=== PATIENT | female | born 1995 | race Caucasian/White ===

== ENCOUNTER 2017-10-31 21:46 | Emergency (ER) | payer OTHER ==
[~2017-10-31] VITALS: Ht 162.6 cm; Wt 56.7 kg
[2017-10-31 21:50] VITALS: TEMP 36.5; Ht 162.6 cm; Wt 56.7 kg
[2017-10-31] MEDS ORDERED: AMOXICIL/CLAVU 875MG HOME PACK PO ONE (22:15)
[2017-10-31] MEDS ORDERED: OXYCODONE IR HOME PACK PO ONE (22:15)
[2017-10-31] MEDS ORDERED: AMOX875T PO (22:16)
[2017-10-31] MEDS ORDERED: IBUP-1451 PO (22:16)
--- NOTE | 2017-10-31 22:18 | EMERGENCY ROOM VISIT NOTE ---
ED Visit Note First contact with patient: 22:00 CHIEF COMPLAINT: abscess, drainage from wisdom tooth socket HISTORY OF PRESENT ILLNESS: This 22-year-old female patient presented to the emergency department, ambulatory, with a progressive toothache for past week. The patient states she had her wisdom teeth out by a surgeon in [place] last Saturday, and has been having pain in the right lower socket since the surgery. She states the pain has been manageable with her prescription strength ibuprofen , however over the past day, the pain has been significantly worsening. She states this morning, she awoke with a right-sided headache, and burning sensation around the socket. She states she looked in the mirror and noticed swelling and pus from the right lower socket. She is currently taking amoxicillin 500 mg every 8 hours for approximately 10 days. She states she is also taking 800 mg ibuprofen for the pain. She was not given narcotic pain medication. The patient did contact her surgeon earlier this week, and was advised to do salt water rinses. She did not have the burning and headache at that time. She was told to wait until the sutures were out on Saturday for further evaluation. The patient states when the pain worsened today, she felt that she was unable to wait any longer and was concerned for an infection. The pain is now steady and severe and radiates to the face. They rate their pain a 7/10 and the ibuprofen they have been taking has not relieved the pain. The patient denies fever, but does feel that the right side of her face is swollen. REVIEW OF SYSTEMS: A 6 system review of systems was completed with positives and pertinent negatives listed in the HPI. ALLERGIES: None MEDICATIONS: Ibuprofen, amoxicillin PMH: None SOCIAL HISTORY: The patient is a [employer] student. She lives locally with her roommates. She denies drug, alcohol, tobacco use. PHYSICAL EXAM: Vitals are noted on the nurse's note and reviewed by myself. Vital signs stable. Temperature 36.5C orally. GENERAL: This is a 22-year-old female, in no acute distress, nondiaphoretic, well-developed well-nourished. Mouth: The right lower third molar socket does appear to have some mild purulent drainage associated with erythema and edema. The gum is very tender and swollen. There are no obvious signs of an abscess on examination. The drainage does appear to become from the center of the socket where the sutures are in place. The remainder of the pharynx and tonsils are without erythema, edema, or exudate. The airway is patent. There is mild right side facial swelling, but no cervical or submandibular lymphadenopathy. The patient appears uncomfortable and in pain. The patient has overall very good dental hygiene. EARS: External auditory canals clear, tympanic membranes pearly navarro without erythema or effusion bilaterally. ED COURSE: The patient was seen and evaluated as above. She is currently taking amoxicillin and prescription strength ibuprofen. Based on her examination, I do suspect the beginning of an abscess/infection of the tooth socket. The patient will be switched from amoxicillin to Augmentin to provide anaerobic bacteria coverage. I did provide the patient with a home pack for OxyIR to help with short-term pain management. The patient did states she is running low on her prescription ibuprofen, and did ask for a prescription for this medication. She was provided with that as well. The patient was encouraged to follow up outpatient with her oral surgeon, and I also advised her to contact her surgeon tomorrow to ensure they are in agreement with the plan at this time. The patient will follow up on Saturday at her regularly scheduled appointment. Discharge instructions reviewed, and the patient was discharged home in good condition. I attest that I have personally reviewed the patient's current medication list. Patient was found to have normal blood pressure on screening and does not require follow-up. DIFFERENTIAL DIAGNOSIS: Odontalgia, periapical abscess, dry socket, acute sinusitis, upper respiratory infection, malignancy, and others DIAGNOSIS: Odontalgia, s/p wisdom teeth removal Current/Historical Medications Scheduled Amoxicillin & Pot Clavulanate (Augmentin 875-125 mg), 1 TAB PO BID Scheduled PRN Ibuprofen Tab (Motrin), 800 MG PO Q8H PRN for Pain Vital Signs Date Time Temp Pulse Resp B/P (MAP) Pulse Ox O2 Delivery O2 Flow Rate FiO2 10/31/17 21:50 36.5 69 16 117/76 97 Room Air Departure Information Impression Primary Impression: Periapical abscess Additional Impression: Status post third molar tooth extraction Dispostion Home / Self-Care Condition GOOD Prescriptions Ibuprofen Tab (MOTRIN) 800 Mg Tab 800 MG PO Q8H Y for Pain, #100 TAB For Initial Treatment Prov: Migdalia Sinha, JEAN CLAUDE 10/31/17 Amoxicillin & Pot Clavulanate (Augmentin 875-125 mg) 1 Tab Tab 1 TAB PO BID for 7 Days, #14 TAB Prov: Migdalia Sinha PA-C 10/31/17 Patient Instructions ED Abscess Dental, [facility] Additional Instructions You have been treated in the Emergency Department for Dental Pain. You have been prescribed OxyIR to be used for pain control. This is a narcotic medication. You cannot drive or consume alcohol while on this medicine. This medicine should only be used for pain that cannot be controlled with over-the- counter pain medicines. You were prescribed Augmentin to be taken in place of the Amoxicillin you were previously prescribed. This is an antibiotic. All antibiotics have the potential to cause diarrhea. Stop this medication and contact a medical provider if you were to develop any significant adverse side effects including: wheezing, shortness of breath, passing out, vomiting, or a diffuse rash. Always take antibiotics as directed and COMPLETE the ENTIRE course regardless of the improvement of your symptoms. For pain control, you can use the following [id number] medicines (if >12 yo): Ibuprofen(Motrin, Advil) may be used for fever or pain. Use 800mg every eight hours as needed. Take with food. Avoid using more than 2400mg in a 24 hour period. Do not use 2400mg per day for more than three consecutive days without physician direction. Prolonged inappropriate use can lead to stomach upset or ulcers. (AND/OR) Acetaminophen(Tylenol) may be used for fever or pain. Use 1000mg every six hours as needed. Avoid using more than 3000mg in a 24 hour period. *You may alternate these medications every 4 hours for increased pain control. Refrain from smoking cigarettes or using chewing tobacco until you have been evaluated by your dentist. Keeping beverages lukewarm and consuming soft foods can decrease your pain. Warm compresses over the affected area may offer some relief. You MUST seek evaluation of your dental pain by a dentist following your visit to the Emergency Department. The Emergency Department is not capable of treating dental issues long-term. You should call your dentist as soon as possible to make an appointment for evaluation of your dental pain. Contact your oral surgeon tomorrow morning regarding the change in antibiotics to ensure they agree with this treatment plan. Return to the emergency department if you develop the following symptoms despite treatment course outlined above: fever, intractable pain, increased redness, swelling, or purulent discharge. School Instructions Return To School: 1 day Problem Qualifiers
[2017-10-31] MEDS ORDERED: BIOT1CAP3 PO (22:25)
[2017-10-31 22:35] VITALS: BP 113/54; PULSE 66; O2SAT 98
== END 2017-10-31 22:37 | disposition home or self-care (01) ==
LOC: C.EDB 21:48 → C.EDD 22:37
DX: K04.7 Periapical abscess without sinus (principal); K08.409 Partial loss of teeth, unspecified cause, unspecified class